=== PATIENT | female | born 1935 | race Caucasian/White ===

== ENCOUNTER 2023-04-12 23:04 | Emergency (ER) | payer MEDICARE, MEDICAID ==
[~2023-04-12] VITALS: Ht 170.2 cm; Wt 55.5 kg
[~2023-04-12 23:04] MED LIST: COZAAR100 MG PO; DOXYCYCLINE HY100 MG PO; HYDROCODON-ACE1 EAC8 PO; METOPROLOL TART50 MG PO; NEURONTIN300 MG PO
--- OUTSIDE RECORDS SUMMARY | 2023-04-12 23:06 | XMS ---
PreManage Notification: LISETH Security Glue Bone Crusher Events No recent Security Events currently on file CRITERIA MET - [facility] CARE PROVIDERS There are no care providers on record at this time. Shiela has no Care Guidelines for this patient. Berenice VISIT COUNT (12 MO.) 2 TAD Carrizales [facility] TOTAL 3 NOTE: Visits indicate total known visits. ED/C VISIT TRACKING (12 MO.) 04/12/2023 23:05 [facility] [place] TYPE: Emergency COMPLAINT: - HEART RATE ISSUE 11/13/2022 11:32 [facility] DIAGNOSES: - Infection and inflammatory reaction due to other internal orthopedic prosthetic devices, implants and grafts, initial encounter - Other mechanical complication of other internal orthopedic devices, implants and grafts, initial encounter - Back Pain - Medical Problem - Post-op Problem 11/11/2022 13:49 TAD Lubin TYPE: Emergency COMPLAINT: - POST SURGICAL BACK PAIN/LEAKING DIAGNOSES: - Allergy status to other antibiotic agents - Allergy status to penicillin - Allergy status to sulfonamides - Encounter for change or removal of surgical wound dressing - Essential (primary) hypertension - Other manager long term care (current) drug therapy INPATIENT VISIT TRACKING (12 MO.) 11/20/2022 19:51 [facility] TYPE: Inpatient DIAGNOSES: - Abnormal electrocardiogram [ECG] [EKG] - COVID-19 - Disruption of external operation (surgical) wound, not elsewhere classified, initial encounter - Disruption of wound, unspecified, initial encounter - Encounter for other preprocedural examination - Fusion of spine, thoracolumbar region - Other hypotension - Other assisted (current) drug therapy - Dehiscence of operative wound, initial encounter [T81.31XA] - 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
[2023-04-12 23:38] LABS: BASOPHILS 0.6 % (0-2); HEMATOCRIT 39.5 % (35.0-50.0); LYMPHOCYTES 46.8 % (24-44); MCH 30.4 (27-36); MCHC 32.9 g/dl (30-36); MCV 92.3 fl (81-99); MONOCYTES 8.1 % (0-12); NEUTROPHILS 41.5 % (39-80); PLATELET COUNT 165 K/uL (140-440); RBC 4.28 M/ul (4.3-5.7); RDW 13.9 (10.5-15.0)
[2023-04-12 23:56] LABS: ALBUMIN 3.7 g/dL (3.4-5.0); ALBUMIN/GLOBULIN RATIO 0.82 (1.1-2.4); ANION GAP 13.4 (7-21); BILIRUBIN, TOTAL 0.5 ng/dL (0.2-1.0); BUN/CREATININE RATIO 30.3 (6.0-28.6); CALCIUM 9.7 mg/dL (8.5-10.1); CREATININE, SERUM 0.99 mg/dL (0.55-1.02); POTASSIUM 4.4 mmol/L (3.5-5.1); PROTEIN, TOTAL 8.2 g/dL (6.4-8.2); TSH, 3RD GENERATION 0.677 uIU/mL (0.358-3.740)
[2023-04-13 00:25] LABS: INFLUENZA B NAA NEGATIVE (NEGATIVE); RESPIRATORY SYNCYTIAL VIR NAA NEGATIVE (NEGATIVE)
[2023-04-13] MEDS ORDERED: COZAAR100 MG PO (00:40)
[2023-04-13] MEDS ORDERED: TOPROL XL50 MG PO (00:40)
[2023-04-13 00:49] VITALS: BP 172/97
--- NOTE | 2023-04-13 20:33 | EKG ---
[facility] [address] [place] [address] Signed Sinus rhythm with premature atrial complexes Incomplete right bundle branch block Borderline ECG No previous ECGs available Confirmed by Julisa Reddy MD () on 04/13/2023 8:32:49 PM Electronically Signed By: JULISA REDDY MD 04/13/232032 PATIENT NAME: QUEENIE CHILDERS Electrocardiogram DATE OF : [birth year] PHYSICIAN: JULISA REDDY MD REPORT #: [id number] REPORT IS CONFIDENTIAL AND NOT TO BE RELEASED WITHOUT AUTHORIZATION
== END 2023-04-13 00:50 | disposition home or self-care (01) ==
LOC: ED 23:04
PROVIDERS: Internal Medicine
DX: R00.2 Palpitations (principal); I10 Essential (primary) hypertension; Z88.2 Allergy status to sulfonamides; Z88.0 Allergy status to penicillin; Z88.1 Allergy status to other antibiotic agents; Z79.899 Other long term (current) drug therapy; Z11.52 Encounter for screening for COVID-19
CPT/HCPCS: 36415; 71045; 80053; 83880; 84443; 84484; 85025; 87502; 93005; 93010; 99285-25; U0002

== ENCOUNTER 2023-07-29 14:38 | Inpatient (IN) | payer MEDICARE, MEDICAID ==
[~2023-07-29] VITALS: Ht 170.2 cm; Wt 65.9 kg
[~2023-07-29 14:38] MED LIST changes: +TOPROL XL50 MG PO
--- OUTSIDE RECORDS SUMMARY | 2023-07-29 14:40 | XMS ---
PreManage Notification: LISETH Security Fiscal Services Manager Events No recent Security Events currently on file CRITERIA MET - [facility] CARE PROVIDERS PIA DYKES [facility] Current PHONE: Unknown Shiela has no Care Guidelines for this patient. E.DGissel VISIT COUNT (12 MO.) 3 [facility] NOTE: Visits indicate total known visits. ED/UCC VISIT TRACKING (12 MO.) 07/29/2023 14:39 T[facility] TYPE: Emergency COMPLAINT: - WEAKNESS 04/12/2023 23:05 [facility] [place] TYPE: Emergency COMPLAINT: - HEART RATE ISSUE DIAGNOSES: - Allergy status to other antibiotic agents - Allergy status to penicillin - Allergy status to sulfonamides - Encounter for screening for COVID-19 - Essential (primary) hypertension - Other termite technician (current) drug therapy - Palpitations [facility] DIAGNOSES: - Infection and inflammatory reaction due to other internal orthopedic prosthetic devices, implants and grafts, initial encounter - Other mechanical complication of other internal orthopedic devices, implants and grafts, initial encounter - Back Pain - Medical Problem - Post-op Problem 11/11/2022 13:49 [facility] [place] TYPE: Emergency COMPLAINT: - POST SURGICAL BACK PAIN/LEAKING DIAGNOSES: - Allergy status to other antibiotic agents - Allergy status to penicillin - Allergy status to sulfonamides - Encounter for change or removal of surgical wound dressing - Essential (primary) hypertension - Other long-term (current) drug therapy INPATIENT VISIT TRACKING (12 MO.) 11/20/2022 19:51 [facility] TYPE: Inpatient DIAGNOSES: - Abnormal electrocardiogram [ECG] [EKG] - COVID-19 - Disruption of external operation (surgical) wound, not elsewhere classified, initial encounter - Disruption of wound, unspecified, initial encounter - Encounter for other preprocedural examination - Fusion of spine, thoracolumbar region - Other hypotension - Other long-term (current) drug therapy - Dehiscence of operative wound, initial encounter [T81.31XA] - 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
[2023-07-29] MEDS ORDERED: SODIUM CHLORIDE 0.9% 500 ML IV ONE (15:00)
[2023-07-29 15:11] LABS: BASOPHILS 0.1 % (0-2); EOSINOPHILS 0.9 % (0-6); HEMATOCRIT 35.7 % (35.0-50.0); HEMOGLOBIN 11.8 g/dL (12.0-18.0); LYMPHOCYTES 12.2 % (24-44); MCH 30.5 (27-36); MCV 92.4 fl (81-99); MONOCYTES 10.7 % (0-12); NEUTROPHILS 76.1 % (39-80); RBC 3.87 M/ul (4.3-5.7); RDW 13.8 (10.5-15.0)
[2023-07-29 15:25] LABS: PLATELET COUNT 220 K/uL (140-440)
[2023-07-29 15:28] LABS: ALBUMIN 3.2 g/dL (3.4-5.0); ALBUMIN/GLOBULIN RATIO 0.68 (1.1-2.4); ANION GAP 15.3 (7-21); BILIRUBIN, TOTAL 0.5 ng/dL (0.2-1.0); BUN/CREATININE RATIO 16.38 (6.0-28.6); CALCIUM 9.1 mg/dL (8.5-10.1); CREATININE, SERUM 2.38 mg/dL (0.55-1.02); POTASSIUM 4.3 mmol/L (3.5-5.1); PROTEIN, TOTAL 7.9 g/dL (6.4-8.2)
[2023-07-29 15:37] LABS: INFLUENZA B NAA NEGATIVE (NEGATIVE); RESPIRATORY SYNCYTIAL VIR NAA NEGATIVE (NEGATIVE)
[2023-07-29] MEDS ORDERED: SODIUM CHLORIDE 0.9% 1,000 ML IV ONE (16:00)
[2023-07-29 16:28] LABS: BILIRUBIN, URINE NEGATIVE (negative); BLOOD/HGB, URINE TRACE-I (Negative); KETONE, URINE NEGATIVE (Negative); LEUK ESTERASE, URINE MODERATE (negative); NITRITE, URINE NEGATIVE (negative)
[2023-07-29 16:35] LABS: BACTERIA, URINE 1+ /hpf (negative); CASTS, URINE NONE SEEN \\lpf; COLLECTION TYPE, URINE CLEAN CATCH; CRYSTALS, URINE NONE SEEN (0-1+); EPITHELIAL CELLS, URINE 0 /lpf (0-1+); RED BLOOD CELLS, URINE 0-1 /hpf (0-5); REFLEX CULTURE, URINE Yes (No); WHITE BLOOD CELLS, URINE >50 /HPF (0-5)
[2023-07-29] MEDS ORDERED: CEFTRIAXONE/SODIUM CHLORIDE 2 GM/100 ML PIGGYBACK IV ONE (16:45)
[2023-07-29] MEDS ORDERED: ondansetron HCL 4 MG/2 ML VIAL IV PRN (17:45)
[2023-07-29] MEDS ORDERED: ACETAMINOPHEN 325 MG TAB PO PRN (17:45)
[2023-07-29] MEDS ORDERED: SODIUM CHLORIDE 0.9% 1,000 ML IV SCH (17:45)
--- NOTE | 2023-07-29 18:29 | NUR ---
PT ARRIVES TO ROOM VIA STRETCHER. PT ABLE TO SCOOT SELF OVER ONTO BED. BEDSIDE REPORT RECIEVED FROM BETH Griffith RN. SUNNY RN AND MICKI JOHANSEN IN ROOM ASSISTING WITH VITALS. VITALS AND BED WEIGHT COMPLETE. IV FLUSHES WNL AND IV FLUIDS STARTED, SEE MAY. PTs HOME MEDICATIONS AND WALLET PLACED IN LOCK BOX IN ROOM. BELONGINGS IN SAH BAG. PTs OWN CANE IN ROOM. PTs GRANDAUGHTER IN ROOM WITH PT. WATER PROVIDED. TELE PLACED. PT AND [facility]s [facility] DENY ANY NEEDS AT THIS TIME. CALL LIGHT IN REACH. PT EDUCATED GLASS CARRIER LIGHT USE. BED ALARM ON.
[2023-07-29 18:30] VITALS: BP 125/109
--- NOTE | 2023-07-29 19:48 | NUR ---
REPORT RECIEVED FROM DAY SHIFT RN. PATIENT RESTING IN BED. NO CURRENT NEEDS. CALL LIGHT IN REACH.
--- NOTE | 2023-07-29 19:56 | NUR ---
tele #6 shows hr varying between 120's to 130's, per primary rn dr danie pimentel to come to floor. pt in no distress, fidgety in bed. staff in room placing tele leads back in place.
[2023-07-29 20:02] VITALS: BP 122/68
--- NOTE | 2023-07-29 20:05 | NUR ---
ZIPPER CUTTER ENTERED ROOM AND OBTAINED VITALS AT RN REQUEST. VITALS DOCUMENTED. PT STATES NO FURTHER NEEDS AT THIS TIME. CALL LIGHT PLACED WITHIN REACH.
--- NOTE | 2023-07-29 20:13 | NUR ---
SHCEDULED MED PROVIDED. PT RESTING IN BED. PT STATES NO OTHER NEEDS AT THIS TIME. CALL LIGHT IN REACH, RAILS UP, CURTAIN OPEN.
[2023-07-29] MEDS ORDERED: METOPROLOL TARTRATE 50 MG TAB PO SCH (21:00)
[2023-07-29] MEDS ORDERED: GABAPENTIN 300 MG CAP PO SCH (21:00)
[2023-07-29] MEDS ORDERED: GABAPENTIN 300 MG CAP PO ONE (21:15)
--- NOTE | 2023-07-29 22:20 | NUR ---
PATIENT RESTING IN BED, TALKING TO HERSELF. SCHEDULED MEDICATION ADMINSITERED, WITH PUDDING. PATIENT CONFUSED, BUT CAN STATE OWN NAME. PATIENT BELIEVES SHE IS IN [place]. THIS RN AND STEAM SERVICE INSPECTOR RE-ORIENT PATIENT NEEDED. PATIENT PLEASANT. THIS RN AND BUFFING AND POLISHING WHEEL REPAIRER REMOVED PATIENTS STREET CLOTHING, PLACED IN GREEN BAG AND PUT IN CLOSET. PATIENT INCONTINENT OF URINE. BED BATH COMPELTED, FRESH ALEAH, BRIEF, AND PUREWICK PLACED AFTER MARY CARMEN CARE PROVIDED. PATIENT REPOSTIONED IN BED. PILLOW UNDER BLE TO RELIEVE PRESSURE OFF HEELS. SCDs IN PLACE. FRESH WATER PROVIDED. PATIENT DENIES FURTHER NEEDS. BED ALARM ON FOR SAFETY. IV FLUSHES WNL. CALL LIGHT IN REACH.
--- NOTE | 2023-07-29 23:33 | NUR ---
PATIENT RESTING IN BED ON BACK, TALKING TO HERSELF. PATIENT BILAT PUPILS EQUAL AND REACTIVE TO LIGHT. BILAT UPPER AND BILAT LOWER EXTREMITIES HAVE EQUAL STREGTH. NO FACIAL DROOP NOTED. NO FURTHER NEEDS AT THIS TIME. CALL LIGHT IN REACH. HR 103 ON TELE #6.
--- NOTE | 2023-07-29 23:35 | NUR ---
IN ROOM WITH PRIMARY RN TRISTAN, pt REMAINS CONFUSED. A/O TO SELF, REORIENTED TO PLACE AND SITUATION. THERAPUETIC COMMMUNICATION PROVIDED, BED ALARM REMAINS ON FOR SAFETY. PER SHIFT REPORT, pt CONFUSED AND PER H&P-FAMILY REPORTS pt HAS NAUN EXPERIENCING DELIRIUM PRIOR TO HOSPITALIZATION. PRIMARY RN COMPLETED FOCUSED NEURO CHECK WITH NO FINDING OTHER THAN ALREADY NOTED CONFUSION. pt CONTINUES TO INTERMITTENTLY TALK TO SELF. SEE PRIMARY RN NOTE FOR DETAILS. WILL CONTINUE TO MONITOR. VS REMAINS STABLE AND TELE IN PLACE.
[2023-07-30] VITALS (7 sets, daily range): BP systolic 103–145; BP diastolic 56–91
--- NOTE | 2023-07-30 00:55 | NUR ---
PATIENT RESTING IN BED ON BACK, TALKING TO HERSELF. PATIENT APPEARS COMFORTABLE AT THIS TIME. CALL LIGHT IN REACH.
--- NOTE | 2023-07-30 01:24 | NUR ---
ROUNDED ON pt pt HEARD TALKING TO SELF. pt AWAKE AND RESTING IN BED, TV ON. pt ASKED IF SHE WANTED HER GLASSES OFF SO SHE COULD GET SOME REST/SLEEP. pt STATES, "NO, I'M UP FOR THE DAY". THIS RN ASKED pt WHAT TIME SHE THOUGHT IT WAS, pt THEN LOOKS AT HER WATCH AND STATES, "IT'S ONE O'CLOCK". pt REORIENTED THAT IT'S ONE IN THE MORNING. pt ENCOURAGED TO GET SOME SLEEP. WINDOW CURTAIN/BLINDS PULLED DOWN TO HELP EASE DISTRACTION, TV QUIET. BED ALARM REMAINS ON FOR SAFETY AND CALL LIGHT IN REACH.
--- NOTE | 2023-07-30 02:16 | NUR ---
AUDIO VISUAL AIDS DIRECTOR AND RN ENTERED ROOM AND AUDIO VISUAL AIDS DIRECTOR TOOK VITALS. RN REMAINED IN ROOM TALKING WITH PT. CALL LIGHT WITHIN REACH.
--- NOTE | 2023-07-30 02:27 | NUR ---
IN ROOM pt HEARD CRYING FROM RN STATION. pt CRYING, NO TEARS NOTED, BUT FACE CUPPED IN HANDS. THERAPEUTIC COMMUNICATION PROVDIED, pt A/O TO SELF AND , AND TIME. REORINETED TO PLACE AND SITUATION. pt REMINISCING ON HER HOME IN [place], [place] AND HOW SHE LOVED HER HOME THERE. pt STATES, "IT WAS A BEAUTIFUL HOME AND I KEPT IT VERY CLEAN". pt THEN TALKS ABOUT HOW HER "ABOUT 4 YRS AGO, HE WAS A RETIRED ELECTRONIC EQUIPMENT REPAIRMEN" AND HOW SHE MOVED INTO HER DAUGHTER GERALD'S HOME AND IT CAN BE DIFFICULT LIVING THERE "BECASUE SHE HAS KIDS AND THEY'RE LOUD AND NOISY". pt REPORTS SHE ALSO HAS OTHER CHILDREN, NAMED EUGENE ANOTHER DAUGHTER. pt THEN CHANGES SUBJECT AND BEGINS TO DISCUSS AND GO OFF ON A TANGENT REGARDING HER HX OF HOSPITALIZATIONS AND HOW HOSPITALS "TRY AND GET MONEY OUT OF YOU". pt REPORTS LONG HX OF SURGERIES AND OTHER INFECTIONS SUCH UTI'S. pt MAKES STATEMENTS SUCH , "THEY TRY AND GET YOUR INSURANCE INFORMATION AND THAT'S HOW THEY GET YOUR MONEY". pt ALSO VERBALIZES HOW SHE REFUSES TO GO INTO AN "RESIDENTIAL". ACTIVE LISTENING AND THERAPEUTIC COMMUNICATION PROVDIED DURING CONVERSATION AND pt REASSURED AND EDUCATED ON RATIONALE FOR HOSPITALIZATION AND POC REGARDING UTI AND TREAMTENT. QUESTIONS ANSWERED, CALL LIGHT IN REACH AND BED ALARM ON. IV SITE JACKELIN MCLAUGHLIN RECENTLY IN ROOM AND COLLECTED VS. VSS, TELE #[address] PRIMARY RN TRISTAN UPDATED.
--- NOTE | 2023-07-30 04:21 | NUR ---
BREWERY REPRESENTATIVE AND RN ENTERED ROOM. PT STATED THE NEED TO USE BATHROOM. RN AND BREWERY REPRESENTATIVE ASSISTED PT TO BSC. PT ATTENDS CHANGED AND PUREWICK REMOVED. PT ASSISTED BACK TO BED. VITALS OBTAINED AND I AND O DOCUMENTED. PT STATES NO FURTHER NEEDS AT THIS TIME. CALL LIGHT PLACED WITHIN REACH.
--- NOTE | 2023-07-30 04:25 | NUR ---
PATIENT SET OFF BED ALARM, REPORTS NEEDING TO URINATE. PATIENT UP WITH SBA TO BSC TO VOID DARK YELLOW URINE. NEW BREIF IN PLACE AFTER MARY CARMEN CARE PROVIDED. BARRIER CREAM APPLIED TO SACRUM. PATIENT BACK TO BED. BLE RESTING ON PILLOW. SCDs IN PLACE. VS AND I&Os OBTAINED AND RECORDED. PATIENT ABLE TO HOLD CONVERSATION, AND FOLLOWING COMMANDS THIS AM. NO FURTHER NEEDS. CALL LIGHT IN REACH. BED ALARM ON FOR SAFETY. IV SITE INFUSING FLUID WNL.
[2023-07-30 05:27] LABS: BASOPHILS 0.1 % (0-2); EOSINOPHILS 0.1 % (0-6); HEMATOCRIT 31.7 % (35.0-50.0); HEMOGLOBIN 10.5 g/dL (12.0-18.0); LYMPHOCYTES 19.7 % (24-44); MCH 30.4 (27-36); MCHC 33.1 g/dl (30-36); MCV 91.8 fl (81-99); MONOCYTES 10.9 % (0-12); NEUTROPHILS 69.2 % (39-80); PLATELET COUNT 184 K/uL (140-440); RBC 3.45 M/ul (4.3-5.7)
[2023-07-30 05:45] LABS: ALBUMIN 2.5 g/dL (3.4-5.0); ALBUMIN/GLOBULIN RATIO 0.6 (1.1-2.4); ANION GAP 11.4 (7-21); BILIRUBIN, TOTAL 0.5 ng/dL (0.2-1.0); BUN/CREATININE RATIO 17.29 (6.0-28.6); CALCIUM 8.3 mg/dL (8.5-10.1); CREATININE, SERUM 1.33 mg/dL (0.55-1.02); POTASSIUM 4.4 mmol/L (3.5-5.1); PROTEIN, TOTAL 6.7 g/dL (6.4-8.2)
--- NOTE | 2023-07-30 07:05 | NUR ---
REPORT RECIEVED FROM MICKI HUDSON. PT RESTING IN BED WITH EYES CLOSED, RR EVEN AND UNLABORED. PT SEMI-FOWLERS IN BED. NO NEEDS IDENTIFIED AT THIS TIME. CALL LIGHT IN REACH. IV INFUSING WNL.
[2023-07-30] MEDS ORDERED: GABAPENTIN400 MG PO (08:06)
[2023-07-30] MEDS ORDERED: FLUTICASONE PRO16 GM NAS (08:08)
[2023-07-30] MEDS ORDERED: METOPROLOL SUCC50 MG PO (08:08)
[2023-07-30] MEDS ORDERED: NITROGLYCERIN0.4 MG SL (08:09)
[2023-07-30] MEDS ORDERED: GABAPENTIN 300 MG CAP PO SCH (09:00)
[2023-07-30] MEDS ORDERED: LOSARTAN POTASSIUM 100 MG TAB PO SCH (09:00)
--- NOTE | 2023-07-30 09:07 | NUR ---
MED REC COMPLETE.
--- NOTE | 2023-07-30 09:20 | NUR ---
IN TO ADMINISTER MEDICATIONS, SEE MAR. PT RESTING IN BED WITH EYES CLOSED, RR EVEN AND UNLABORED. PT AWAKENS WHEN ADDRESSED. PT A&O TO SELF. ASKED PT IF PT KNOWS WHERE WE ARE. PT STATES "[facility] H[facility]ESS." ASKED PT IF PT KNOWS WHAT TOWN WE ARE IN AND PT STATES "NO." INFORMED PT WE ARE [place]. ASKED PT WHAT THE DATE IS AND PT STATES "NO." ASKED PT WHAT MONTH IT IS AND PT STATE "RIGHT NOW MY BRAIN IS NOT WORKING." ASKED PT WHAT YEAR IT IS AND PT STATES "I THINK IT IS MAY. MUST BE ABOUT THE BECAUSE MY BIRTHDAY IS COMING UP. IT IS THE ." ASKED PT AGAIN WHAT YEAR IT IS AND PT STATES "." INFORMED PT THAT IT IS INDEED July. PT SITTING UP IN BED EATING BREAKFAST. PT DENIES ANY OTHER NEEDS AT THIS TIME. CALL LIGHT IN REACH. BED ALARM ON.
--- NOTE | 2023-07-30 09:41 | NUR ---
MED REC COMPLETE
--- NOTE | 2023-07-30 10:31 | NUR ---
PT WORKING WITH PHYSICAL THERAPY AND OT. NO NEEDS FROM THIS RN.
--- NOTE | 2023-07-30 10:53 | NUR ---
IN IV PUMP ALARMING, RESOLVED. NEW BAG OF FLUIDS STARTED, SEE LESLIE KIRBY IN TALKING TO PT AND PTs FAMILY THAT ARE PRESESNT. NO NEEDS FROM THIS RN. CALL LIGHT IN REACH.
--- NOTE | 2023-07-30 11:12 | NUR ---
SPOKE TO PATIENT ABOUT THE DISCHARGE PLAN. PATIENT LIVE HER FAMILY.PATIENT USES A CANE AND A WALKER WHEN NEEDED. PATIENT CAN DO HER OWN ADLS. PATIENT'S DAUGHTER IS GREAT SUPPORT.PATIENT CAN AFFORD FOOD,UTILITIES AND HOUSING. PATIENT IS HAPPY WITH HER LIVING ARRANGMENTS AND IS VERY ACTIVE. PATIENT DOES NOT NEED DC PLANNING AT THIS TIME.
--- NOTE | 2023-07-30 11:16 | NUR ---
IN TO ROUND ON PT. PT SITTING UP IN RECLINER. FAMILY EXITING ROOM. ASSESSMENT COMPLETE. LUNG SOUNDS CRACKLES THROUGHOUT. COUGH NOTED. BOWEL TONES HYPERACTIVE. ABD SOFT AND NON-TENDER WITH PALPATION. MILD DISTENTION NOTED TO ABD. SCAR NOTED DOWN PTs BACK ALONG WITH NODULE AT BASE OF NECK. SCABS NOTED TO LEFT FOOT ON SECOND AND FORTH TOE. PT DENIES PAIN AT THIS TIME. 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 HEART RATE IRREGULAR. PEDAL PULSES PALPABLE AND EQUAL, STRONG. PT SITTING UP IN RECLINER. PT DENIES ANY OTHER NEEDS AT THIS TIME. CALL LIGHT IN REACH.
--- NOTE | 2023-07-30 11:22 | NUR ---
ATTEMPTED TO VISIT DURING SPIRITUAL CARE ROUNDS. PT RECEIVING NURSING CARE. DID NOT INTERRUPT. PROVIDED PRAYER.
[2023-07-30] MEDS ORDERED: HYDROCODONE/APAP 10/325 1 TAB PO ONE (11:30)
--- NOTE | 2023-07-30 11:41 | NUR ---
AUSCULTATED LUNGS. CRACKLES PRESENT. NOTIFIED PRIMARY RN WHO NOTIFIED PROVIDER. INCENTIVE SPIROMETER EDUCATION PROVIDED. TEACH BACK SUCCESSFUL.
[2023-07-30] MEDS ORDERED: PHARMACY RENAL DOSE ADJUSTMENT 1 DOSE MISC PO SCH (12:00)
--- NOTE | 2023-07-30 13:18 | EKG ---
[facility] [address] [place] [address] Signed Sinus tachycardia Right bundle branch block Abnormal ECG When compared with ECG of 12-APR-2023 23:19, premature atrial complexes are no longer present Confirmed by Julisa Reddy MD () on 07/30/2023 1:18:49 PM Electronically Signed By: JULISA REDDY MD 07/30/23 1318 PATIENT NAME: QUEENIE CHILDERS Electrocardiogram DATE OF : [birth year] PHYSICIAN: JULISA REDDY MD REPORT #: [id number] REPORT IS CONFIDENTIAL AND NOT TO BE RELEASED WITHOUT AUTHORIZATION
--- NOTE | 2023-07-30 13:39 | NUR ---
IN TO ROUND ON PT. PT SITTING UP IN RECLINER AND RESPONDS WHEN ADDRESSED. PT STATES "I CANNOT EAT ANY MORE, I AM SORRY." TRAY REMOVED. PT REQUESTING TO GO BACK TO BED. SBA WITH FWW FROM RECLINER TO BED. PT IN BED. PT DENIES ANY OTHER NEEDS AT THIS TIME. CALL LIGHT IN REACH. BED ALARM ON.
--- NOTE | 2023-07-30 13:50 | NUR ---
PT RESTING IN BED AT THIS TIME, READING A BOOK OF HER OWN. VS STABLE. DENIES ANY NEEDS AT THIS TIME, CALL LIGHT WITHIN REACH, PT DENIES FURTHER NEEDS.
--- NOTE | 2023-07-30 14:31 | NUR ---
IN TO ROUND ON PT. PT RESTING IN BED WITH EYES CLOSED, RR EVEN AND UNLABORED. PT AWAKENS AND RESPONDS WHEN ADDRESSED. ASSESSMENT COMPLETE. LUNG SOUNDS CLEAR IN RUL AND MATILDA. CRACKLES IN RLL AND LLL. PT A&O TO SELF, DATE, PLACE, TIME. PT DENIES PAIN AT THIS TIME. PT DENIES ANY NEEDS AT THIS TIME. CALL LIGHT IN REACH. BED ALARM ON.
[2023-07-30] MEDS ORDERED: HYDROCODONE/APAP 10/325 1 TAB PO SCH (15:00)
--- NOTE | 2023-07-30 15:47 | NUR ---
IN WITH SN ZAYDA TO ADMINISTER MEDICATION, SEE MAR. PT SITTING UP IN BED SEMI-FOWLERS. PT REPSONDS WHEN ADDRESSED PT TAKES PO MEDICATION WITH NO ISSUES IN PUDDING. PT DENIES ANY OTHER NEEDS AT THIS TIME. CALL LIGHT IN REACH. BED ALARM ON.
[2023-07-30] MEDS ORDERED: CEFTRIAXONE/SODIUM CHLORIDE 2 GM/100 ML PIGGYBACK IV SCH (17:00)
--- NOTE | 2023-07-30 17:27 | NUR ---
IN WITH SN ZAYDA TO ADMINISTER MEDICATION, SEE MAR. PT LAYING IN BED AND RESPONDS WHEN ADDRESSED. PT DENIES PAIN AT THIS TIME. VITALS AND I&Os COMPLETE. OFFERED TOILETING. PT DENIES AT THIS TIME. PT DENIES ANY OTHER NEEDS AT THIS TIME. CALL LIGHT IN REACH. BED ALARM ON.
--- NOTE | 2023-07-30 19:19 | NUR ---
REPORT RECIEVED FROM DAY SHIFT RN. PATIENT RESTING IN BED READING A BOOK. DENIES NEEDS AT THIS TIME. CALL LIGHT IN REACH.
--- NOTE | 2023-07-30 20:42 | NUR ---
CALL LIGHT ANSWERED. PT STATES NEED TO USE BSC. WELDER SETTER RESISTANCE MACHINE ASSIST WITH FWW TO BSC. PT ATTENDS CHANGED AND PT ASSISTED BACK TO BED. WELDER SETTER RESISTANCE MACHINE OBTAINED VITALS AND DOCUMENTED I AND O. SCDS BACK IN PLACE. PT STATES NO FURTHER NEEDS AT THIS TIME. CALL LIGHT PLACED WITHIN REACH.
--- NOTE | 2023-07-30 21:00 | NUR ---
PATIENT RESTING IN BED READING BOOK. SCHEDULED MEDICATION ADMINISTERED. PATIENT STATES "I DON'T HAVE PAIN, BUT IT WILL COME BACK IF I DON'T TAKE MY MEDICINE". PATIENT REPOSTIONED IN BED. ASSESSMENT COMPLETE. CRACKLES NOTED IN BILAT LOWER LUNG LOBES, CLEAR UPPER LUNG LOBES. IV FLUSHED WNL. PATIENT DENIES FURTHER NEEDS. BED ALARM ON FOR SAFETY. FRESH WATER PROVIDED. CALL LIGHT IN REACH.
--- NOTE | 2023-07-30 22:34 | NUR ---
PATIENT RESTING IN BED WITH EYES CLOSED. RESPIRATIONS EVEN AND UNLABORED. CALL LIGHT IN REACH.
--- NOTE | 2023-07-31 02:01 | NUR ---
PATIENT RESTING IN BED ON BACK WITH EYES CLOSED. RESPIRATIONS EVEN AND UNLABORED. CALL LIGHT IN REACH.
--- NOTE | 2023-07-31 02:19 | NUR ---
CALL LIGHT ANSWERED. PT NEEDED TO USE BSC. INFORMATION CLERK ASSISTED PT TO BSC. RN ENTERED ROOM. INFORMATION CLERK ASSISTED PT TO STAND RN APPLIED BARRIER CREAM. PT ASSISTED BACK TO BED. RN AND INFORMATION CLERK FLOATED PT WITH PILLOWS. PT STATES NO FURTHER NEEDS AT THIS TIME. CALL LIGHT PLACED WITHIN REACH.
--- NOTE | 2023-07-31 03:49 | NUR ---
PATIENT RESTING IN BED WITH EYES CLOSED. RESPIRATIONS EVEN AND UNLABORED. CALL LIGHT IN REACH.
[2023-07-31 05:42] VITALS: BP 130/63
--- NOTE | 2023-07-31 05:46 | NUR ---
SUSPECT ARTIST OBTIANED VITALS AND DOCUMENTED I&O. PT STATES NO FURTHER NEEDS AT THIS TIME. CALL LIGHT PLACED WITHIN REACH.
--- NOTE | 2023-07-31 08:03 | NUR ---
Patient awake, alert and oriented x3. Patient reports chronic back pain, scheduled norco admin per doctor order. Patient reports she slept well last night. No current needs, personal supplies and call light within reach.
[2023-07-31 08:11] VITALS: BP 142/69
[2023-07-31] MEDS ORDERED: METOPROLOL SUCCINATE 50 MG TABCR PO SCH (09:00)
--- NOTE | 2023-07-31 09:11 | NUR ---
PATIENT IN BED AT THIS TIME. PATIENT DID NOT WANT TO GET OUT OF BED AND SIT IN CHAIR FOR BREAKFAST. CALL LIGHT WITHIN REACH, NO FURTHER NEEDS AT THIS TIME.
[2023-07-31] MEDS ORDERED: DOXYCYCLINE HY100 MG PO (11:57)
[2023-07-31 14:07] VITALS: BP 144/68
== END 2023-07-31 14:20 | disposition home or self-care (01) | DRG 690 ==
LOC: ED 14:38 → MS 14:40
PROVIDERS: Emergency Medicine; ADMIT Family Medicine; ATTEND Family Medicine
DX: N39.0 Urinary tract infection, site not specified (principal); N17.9 Acute kidney failure, unspecified; I10 Essential (primary) hypertension; Z66 Do not resuscitate; E86.0 Dehydration; G62.9 Polyneuropathy, unspecified; Z98.1 Arthrodesis status; Z98.890 Other specified postprocedural states; Z88.2 Allergy status to sulfonamides; Z88.0 Allergy status to penicillin; Z88.1 Allergy status to other antibiotic agents; Z79.899 Other long term (current) drug therapy; Z79.891 Long term (current) use of opiate analgesic
CPT/HCPCS: 36415; 71045; 80053; 81001; 83735; 84100; 84484; 85025; 85060; 87088; 87502; A9270; J0696; J7030; J7040; U0002

== ENCOUNTER 2023-09-13 13:29 | Inpatient (IN) | payer MEDICARE, OTHER ==
[~2023-09-13] VITALS: Ht 170.2 cm; Wt 63.0 kg
[2023-09-13] VITALS (19 sets, daily range): BP systolic 116–146; BP diastolic 59–110
[~2023-09-13 13:29] MED LIST changes: +CIPRO250 MG PO; +FLUTICASONE PRO16 GM NAS; +GABAPENTIN400 MG PO; +METOPROLOL SUCC50 MG PO; +NITROGLYCERIN0.4 MG SL
--- OUTSIDE RECORDS SUMMARY | 2023-09-13 13:30 | XMS ---
PreManage Notification: LISETH Security Boatswain'S Mate Events No recent Security Events currently on file CRITERIA MET - [facility] - 2 Visits in 30 Days [facility]: Unknown Shiela has no Care Guidelines for this patient. E.DGissel VISIT COUNT (12 MO.) [address] [place] [address] Emergency [place] [facility] TOTAL 6 NOTE: Visits indicate total known visits. ED/UCC VISIT TRACKING (12 MO.) 09/13/2023 13:29 T[facility] [place] TYPE: Emergency COMPLAINT: - WEAKNESS 08/30/2023 01:15 [facility] TYPE: Emergency COMPLAINT: - FEVER DIAGNOSES: - Allergy status to other antibiotic agents - Allergy status to penicillin - Allergy status to sulfonamides - Altered mental status, unspecified - Essential (primary) hypertension - Other lobsterman (current) drug therapy - Unspecified dementia, unspecified severity, without behavioral disturbance, psychotic disturbance, mood disturbance, and anxiety - Urinary tract infection, site not specified 07/29/2023 14:39 [facility] TYPE: Emergency COMPLAINT: - WEAKNESS 04/12/2023 23:05 [facility] TYPE: Emergency COMPLAINT: - HEART RATE ISSUE DIAGNOSES: - Allergy status to other antibiotic agents - Allergy status to penicillin - Allergy status to sulfonamides - Encounter for screening for COVID-19 - Essential (primary) hypertension - Other longterm (current) drug therapy - Palpitations 11/13/2022 11:32 [facility]: Emergency DIAGNOSES: - Infection [...] dressing - Essential (primary) hypertension - Other longterm (current) drug therapy INPATIENT VISIT TRACKING (12 MO.) 07/30/2023 11:36 [facility] [place] TYPE: Medical Surgical COMPLAINT: - UTI DIAGNOSES: - Acute kidney failure, unspecified - Acute kidney failure, unspecified - Allergy status to other antibiotic agents - Allergy status to other antibiotic agents - Allergy status to penicillin - Allergy status to penicillin - Allergy status to sulfonamides - Allergy status to sulfonamides - Arthrodesis status - Arthrodesis status - Dehydration - Dehydration - Do not resuscitate - Do not resuscitate - Essential (primary) hypertension - Essential (primary) hypertension - [facility] (current) use of opiate analgesic - Other lobsterman (current) drug therapy - Other longterm (current) drug therapy - Other specified postprocedural states - Other specified postprocedural states - Polyneuropathy, unspecified - Polyneuropathy, unspecified - Urinary tract infection, site not specified 11/20/2022 19:51 [facility] TYPE: Inpatient DIAGNOSES: - Abnormal electrocardiogram [ECG] [EKG] - COVID-19 - Disruption of external operation (surgical) wound, not elsewhere classified, initial encounter - Disruption of wound, unspecified, initial encounter - Encounter for other preprocedural examination - Fusion of spine, thoracolumbar region - Other hypotension - Other lobsterman (current) drug therapy - Dehiscence of operative wound, initial encounter [T81.31XA] - 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
[2023-09-13] MEDS ORDERED: dilTIAZem HCL 25 MG/5 ML VIAL IV ONE (13:45)
[2023-09-13] MEDS ORDERED: DILTIAZEM HCl/D5W 125 ML IV ONE (13:45)
[2023-09-13] MEDS ORDERED: SODIUM CHLORIDE 0.9% 1,000 ML IV ONE (13:45)
[2023-09-13 14:04] LABS: HEMATOCRIT 37.2 % (35.0-50.0); HEMOGLOBIN 12.2 g/dL (12.0-18.0); MCH 29.6 (27-36); MCHC 32.8 g/dl (30-36); MCV 90.4 fl (81-99); PLATELET COUNT 194 K/uL (140-440); RBC 4.11 M/ul (4.3-5.7); RDW 15.3 (10.5-15.0)
[2023-09-13 14:18] LABS: BANDS, MANUAL DIFF 4; LYMPHOCYTES, MANUAL DIFF 8; MONOCYTES, MANUAL DIFF 2; NEUTROPHILS, MANUAL DIFF 86
[2023-09-13 14:20] LABS: ALBUMIN 2.6 g/dL (3.4-5.0); ALCOHOL, MEDICAL <3 ng/dL (<3); ALKALINE PHOSPHATASE 78 U/L (46-116); ALT (SGPT) 19 U/L (14-59); ANION GAP 15.9 (7-21); AST (SGOT) 22 U/L (15-37); BILIRUBIN, TOTAL 2.1 ng/dL (0.2-1.0); BUN/CREATININE RATIO 31.78 (6.0-28.6); CALCIUM 9.4 mg/dL (8.5-10.1); CARBON DIOXIDE 22 mmol/L (21-32); CHLORIDE 104 mmol/L (98-107); CREATININE, SERUM 1.29 mg/dL (0.55-1.02); GLOMERULAR FILTRATION RATE,EST 40 mL/min (>60); POTASSIUM 2.9 mmol/L (3.5-5.1); PROTEIN, TOTAL 7.8 g/dL (6.4-8.2); UREA NITROGEN 41 mg/dL (7-18)
[2023-09-13 14:25] LABS: TSH, 3RD GENERATION 0.285 uIU/mL (0.358-3.740)
[2023-09-13 14:26] LABS: BILIRUBIN, URINE NEGATIVE (negative); BLOOD/HGB, URINE MODERATE (Negative); KETONE, URINE TRACE (Negative); LEUK ESTERASE, URINE NEGATIVE (negative); NITRITE, URINE NEGATIVE (negative)
[2023-09-13 14:35] LABS: CRYSTALS, URINE NONE SEEN (0-1+); EPITHELIAL CELLS, URINE 0 /lpf (0-1+)
[2023-09-13 14:36] LABS: BACTERIA, URINE 1+ /hpf (negative); CASTS, URINE GRANULAR 3+ \\lpf; COLLECTION TYPE, URINE CLEAN CATCH; REFLEX CULTURE, URINE No (No)
[2023-09-13] MEDS ORDERED: SODIUM CHLORIDE 0.9% 1,000 ML IV SCH (14:45)
[2023-09-13 14:48] LABS: AMPHETAMINES, URINE NEGATIVE (NEGATIVE); BARBITURATES, URINE NEGATIVE (NEGATIVE); BENZODIAZEPINE, URINE NEGATIVE (NEGATIVE); BUPRENORPHINE, URINE NEGATIVE (NEGATIVE); CANNABINOID, URINE NEGATIVE (NEGATIVE); COCAINE, URINE NEGATIVE (NEGATIVE); ECSTASY, URINE NEGATIVE (NEGATIVE); FENTANYL, URINE NEGATIVE (NEGATIVE); METHADONE, URINE NEGATIVE (NEGATIVE); OPIATES, URINE POSITIVE (NEGATIVE); OXYCODONE, URINE NEGATIVE (NEGATIVE); PHENCYCLIDINE, URINE NEGATIVE (NEGATIVE)
[2023-09-13] MEDS ORDERED: SODIUM CHLORIDE 0.9% 1,000 ML IV PRN (15:00)
[2023-09-13] MEDS ORDERED: levoFLOXacin 500 MG/100 ML BAG IV ONE (15:15)
[2023-09-13] MEDS ORDERED: MORPHINE SULFATE 4 MG/ML VIAL IV PRN (15:45)
[2023-09-13] MEDS ORDERED: METOPROLOL SUCCINATE 50 MG TABCR PO SCH (18:27)
[2023-09-13] MEDS ORDERED: ENOXAPARIN SODIUM 60 MG/0.6 ML SYR SUB-Q ONE (18:30)
[2023-09-13] MEDS ORDERED: LACTATED RINGER'S 1,000 ML IV SCH (18:30)
[2023-09-13] MEDS ORDERED: POTASSIUM CHLORIDE 40 MEQ,LIDOCAINE HCL 1% 40 MG in DEXTROSE 5% 250 ML IV ONE (19:45)
[2023-09-13] MEDS ORDERED: DILTIAZEM HCl/D5W 125 ML IV SCH (19:45)
[2023-09-13] MEDS ORDERED: POTASSIUM CHLORIDE 10 MEQ TABCR PO ONE (19:45)
[2023-09-13] MEDS ORDERED: LEVOFLOXACIN 250 MG/50 ML BAG IV ONE (20:00)
[2023-09-13] MEDS ORDERED: POTASSIUM CHLORIDE 10 MEQ/100 ML BAG IV SCH (20:15)
[2023-09-14] VITALS (48 sets, daily range): BP systolic 103–143; BP diastolic 53–97
[2023-09-14 05:24] LABS: HEMATOCRIT 32.9 % (35.0-50.0); HEMOGLOBIN 10.9 g/dL (12.0-18.0); MCH 29.7 (27-36); MCHC 33.1 g/dl (30-36); MCV 89.7 fl (81-99); PLATELET COUNT 191 K/uL (140-440); RBC 3.67 M/ul (4.3-5.7); RDW 15.7 (10.5-15.0)
[2023-09-14 05:35] LABS: ANION GAP 12.1 (7-21); POTASSIUM 4.1 mmol/L (3.5-5.1)
[2023-09-14 05:39] LABS: BANDS, MANUAL DIFF 35; LYMPHOCYTES, MANUAL DIFF 7; NEUTROPHILS, MANUAL DIFF 58
[2023-09-14] MEDS ORDERED: ENOXAPARIN SODIUM 60 MG/0.6 ML SYR SUB-Q SCH (09:00)
[2023-09-14] MEDS ORDERED: PHARMACY RENAL DOSE ADJUSTMENT 1 DOSE MISC PO SCH (12:00)
[2023-09-14] MEDS ORDERED: GABAPENTIN 400 MG CAP PO SCH (21:00)
[2023-09-15] VITALS (19 sets, daily range): BP systolic 99–131; BP diastolic 54–87
[2023-09-15 05:37] LABS: BASOPHILS 0.3 % (0-2); EOSINOPHILS 0.2 % (0-6); HEMATOCRIT 30.8 % (35.0-50.0); HEMOGLOBIN 10.1 g/dL (12.0-18.0); LYMPHOCYTES 12.4 % (24-44); MCH 29.6 (27-36); MCHC 32.8 g/dl (30-36); MCV 90.4 fl (81-99); MONOCYTES 8.4 % (0-12); NEUTROPHILS 78.7 % (39-80); PLATELET COUNT 184 K/uL (140-440); RBC 3.41 M/ul (4.3-5.7); RDW 15.5 (10.5-15.0)
[2023-09-15 05:50] LABS: ALBUMIN 1.8 g/dL (3.4-5.0); ALBUMIN/GLOBULIN RATIO 0.42 (1.1-2.4); ANION GAP 9.2 (7-21); BILIRUBIN, TOTAL 0.7 ng/dL (0.2-1.0); BUN/CREATININE RATIO 41.75 (6.0-28.6); CALCIUM 8.8 mg/dL (8.5-10.1); CREATININE, SERUM 0.91 mg/dL (0.55-1.02); MAGNESIUM 1.7 mg/dL (1.8-2.4); POTASSIUM 4.2 mmol/L (3.5-5.1); PROTEIN, TOTAL 6.1 g/dL (6.4-8.2)
[2023-09-15] MEDS ORDERED: MAGNESIUM SULFATE 4 GM/100 ML BAG IV ONE (07:30)
[2023-09-15] MEDS ORDERED: METOPROLOL SUCCINATE 50 MG TABCR PO SCH (09:00)
[2023-09-15] MEDS ORDERED: MAGNESIUM SULFATE 100 ML IV ONE (09:56)
[2023-09-15] MEDS ORDERED: dilTIAZem HCL 120 MG CAPCR PO SCH (13:00)
[2023-09-15] MEDS ORDERED: levoFLOXacin 750 MG/150 ML BAG IV SCH (21:00)
[2023-09-15] MEDS ORDERED: BENZONATATE 100 MG CAP PO SCH (21:00)
[2023-09-16] VITALS (7 sets, daily range): BP systolic 116–145; BP diastolic 63–80
[2023-09-16 05:34] LABS: HEMOGLOBIN 9.9 g/dL (12.0-18.0); MCH 29.8 (27-36)
[2023-09-16 05:37] LABS: HEMATOCRIT 29.9 % (35.0-50.0); MCHC 33.2 g/dl (30-36); MCV 89.8 fl (81-99); PLATELET COUNT 200 K/uL (140-440); RBC 3.33 M/ul (4.3-5.7); RDW 15.4 (10.5-15.0)
[2023-09-16 05:43] LABS: ANION GAP 7.9 (7-21); BUN/CREATININE RATIO 36.58 (6.0-28.6); CALCIUM 8.6 mg/dL (8.5-10.1); CREATININE, SERUM 0.82 mg/dL (0.55-1.02); MAGNESIUM 1.9 mg/dL (1.8-2.4); POTASSIUM 3.9 mmol/L (3.5-5.1)
[2023-09-16 05:56] LABS: BANDS, MANUAL DIFF 9; EOSINOPHILS, MANUAL DIFF 1; LYMPHOCYTES, MANUAL DIFF 31; MONOCYTES, MANUAL DIFF 3; NEUTROPHILS, MANUAL DIFF 56
[2023-09-16] MEDS ORDERED: FUROSEMIDE 40 MG/4 ML VIAL IV ONE (08:30)
[2023-09-16] MEDS ORDERED: GABAPENTIN 400 MG CAP PO SCH (13:00)
[2023-09-16] MEDS ORDERED: LEVOFLOXACIN500 MG PO (14:01)
[2023-09-16] MEDS ORDERED: METOPROLOL SUCC50 MG PO (14:02)
[2023-09-16] MEDS ORDERED: DILTIAZEM 24HR120 MG PO (14:02)
[2023-09-16] MEDS ORDERED: HYDROCODONE/APAP 10/325 1 TAB PO SCH (15:00)
--- NOTE | 2023-09-17 07:30 | EKG ---
[facility] [address] [place] [address] Signed Atrial fibrillation with rapid ventricular response Incomplete right bundle branch block Nonspecific T wave abnormality Abnormal ECG When compared with ECG of 13-SEP-2023 13:33, (Unconfirmed) ST no longer depressed in Inferior leads ST no longer depressed in Anterior leads T wave inversion less evident in Anterior leads Confirmed by Jonathan Macdonald MD ([id number]) on 09/17/2023 7:30:47 AM Electronically Signed By: JONATHAN MACDONALD 09/17/23 0730 PATIENT NAME: QUEENIE CHILDERS Electrocardiogram DATE OF : [birth year] PHYSICIAN: JONATHAN MACDONALD REPORT #: [id number] REPORT IS CONFIDENTIAL AND NOT TO BE RELEASED WITHOUT AUTHORIZATION
--- NOTE | 2023-09-17 07:30 | EKG ---
[facility] [address] [place] [address] Signed Atrial fibrillation with rapid ventricular response Right axis deviation Incomplete right bundle branch block Right ventricular hypertrophy with repolarization abnormality Marked ST abnormality, possible septal subendocardial injury Abnormal ECG When compared with ECG of 29-JUL-2023 14:47, Atrial fibrillation has replaced Sinus rhythm QRS axis shifted right ST now depressed in Anterior leads T wave inversion now evident in Anterior leads Confirmed by Jonathan Macdonald MD ([id number]) on 09/17/2023 7:30:02 AM Electronically Signed By: JONATHAN MACDONALD 09/17/23 0730 PATIENT NAME: QUEENIE CHILDERS Electrocardiogram DATE OF : [birth year] PHYSICIAN: JONATHAN MACDONALD REPORT #: [id number] REPORT IS CONFIDENTIAL AND NOT TO BE RELEASED WITHOUT AUTHORIZATION
== END 2023-09-16 16:45 | disposition home or self-care (01) | DRG 193 ==
LOC: ED 13:29 → CCU 18:24
PROVIDERS: Emergency Medicine; ADMIT Internal Medicine; ATTEND Internal Medicine
DX: J18.9 Pneumonia, unspecified organism (principal); J96.01 Acute respiratory failure with hypoxia; G93.49 Other encephalopathy; I48.91 Unspecified atrial fibrillation; F03.90 Unspecified dementia, unspecified severity, without behavioral disturbance, psychotic disturbance, mood disturbance, and anxiety; Z66 Do not resuscitate; I10 Essential (primary) hypertension; G62.9 Polyneuropathy, unspecified; Z98.1 Arthrodesis status; Z88.2 Allergy status to sulfonamides; Z88.1 Allergy status to other antibiotic agents; Z88.0 Allergy status to penicillin; Z98.890 Other specified postprocedural states; Z79.899 Other long term (current) drug therapy
CPT/HCPCS: 36415; 70450; 71045; 71260; 80048; 80053; 80307; 81001; 83605; 83690; 83735; 84439; 84443; 84484; 85025; 85379; 93005; 93010; 93306; 94667; 94760; 97162; 97166; A9270; G0480; J1650; J1940; J1956; J2270; J3475; J3480; J7030; J7121; Q9967